=== PATIENT | female | born 1970 | race Two or more races ===

== ENCOUNTER 2020-05-12 10:59 | Emergency (ER) | payer SELFPAY ==
[~2020-05-12] VITALS: Ht 162.6 cm; Wt 78.2 kg
[2020-05-12 11:04] VITALS: BP 129/79
== END 2020-05-12 12:36 | disposition home or self-care (01) ==
LOC: EMS 11:00
DX: U07.1 COVID-19 (principal)
CPT/HCPCS: 99283; U0003